=== PATIENT | male | born 1985 | race Caucasian/White ===

== ENCOUNTER 2020-03-28 01:23 | Observation (INO) | payer BC, OTHER ==
[~2020-03-28] VITALS: Ht 185.4 cm; Wt 124.8 kg
[2020-03-28] MEDS ORDERED: HYDROmorphone 1 MG/ML, 1ML INJ ONE ×3 (01:41→03:46)
[2020-03-28] MEDS ORDERED: ONDANSETRON 2MG/ML, 2ML ONE ×2 (01:41→06:36)
[2020-03-28] MEDS: HYDROmorphone 2 MG/ML, 1ML IVPush PRN ×2 (01:44→02:34)
[2020-03-28 01:51] LABS: BASOPHILS % (AUTO) 1 % (0-1); EOSINOPHILS % (AUTO) 1 % (1-7); LYMPHOCYTES % (AUTO) 13 % (22-44); MEAN CORPUSCULAR HEMOGLOBIN 27.7 pg (27.5-34.5); MEAN CORPUSCULAR HGB CONC 34.4 g/dL (33.2-36.2); MEAN PLATELET VOLUME 9.5 fL (7.4-10.4); MONOCYTES % (AUTO) 4 % (2-9); NEUTROPHILS % (AUTO) 81 % (42-75); PLATELET COUNT 291 x10^3/uL (130-400); RED BLOOD COUNT 5.54 x10^6/uL (4.38-5.82); RED CELL DISTRIBUTION WIDTH 13.5 % (9.4-14.8)
[2020-03-28 01:56] LABS: MD NO
[2020-03-28] MEDS ORDERED: ONDANSETRON 2MG/ML, 2ML IVPush ONE (02:00)
[2020-03-28] MEDS ORDERED: SODIUM CHLORIDE FLUSH 10ML SYR IVF ONE (02:00)
[2020-03-28 02:01] LABS: ALANINE AMINOTRANSFERASE 126 U/L (12-78); ALBUMIN 4.6 g/dL (3.4-5.0); ANION GAP 5 mmol/L (5-15); CALCIUM 10.2 mg/dL (8.5-10.1); CHLORIDE 105 mmol/L (98-107); CREATININE 1.53 mg/dL (0.7-1.3)
--- NOTE | 2020-03-28 02:02 | NUR ---
PT HAS RUQ PAIN X A FEW HOURS. PT IN VISIBLE DISTRESS D/T PAIN. PIV PLACED AND PT MEDICATED FOR PAIN PER EMAR. US AT BEDSIDE AT THIS TIME.
[2020-03-28 02:04] LABS: ALKALINE PHOSPHATASE 83 U/L (45-117); BILIRUBIN,TOTAL 0.6 mg/dL (0.2-1.0); TOTAL PROTEIN 8.7 g/dL (6.4-8.2)
--- NOTE | 2020-03-28 02:21 | NUR ---
US STILL AT BEDSIDE
[2020-03-28] MEDS ORDERED: CEFOTETAN PMX 2GM/50ML 50 ML IVPB ONE (03:00)
[2020-03-28] MEDS ORDERED: SODIUM CHLORIDE 0.9% 1,000ML IVBOLUS ONE (03:00)
[2020-03-28] MEDS ORDERED: HYDROmorphone 2 MG/ML, 1ML IVPush PRN (03:00)
[2020-03-28] MEDS ORDERED: ONDANSETRON 2MG/ML, 2ML IVPush PRN ×2 (03:30→07:00)
[2020-03-28] MEDS ORDERED: SODIUM CHLORIDE FLUSH 10ML SYR IVF PRN (03:30)
[2020-03-28] MEDS ORDERED: HYDROmorphone 1 MG/ML, 1ML INJ IVPush PRN ×2 (03:30→07:00)
[2020-03-28] MEDS ORDERED: SODIUM CHLORIDE 0.9% 1,000 ML IV ONE (03:30)
[2020-03-28] MEDS ORDERED: PROMETHAZINE 25 MG/ML, 1ML IM PRN (03:30)
--- NOTE | 2020-03-28 03:34 | NUR ---
PT INFORMED OF NPO STATUS. VERBALIZED UNDERSTANDING. PT GIVEN LEMON SWABS TO KEEP MOUTH MOIST.
[2020-03-28] MEDS ORDERED: BUPIVACAINE/PF 0.5% ONE (03:57)
[2020-03-28] MEDS ORDERED: EPINEPHRINE 1 MG/ML, 1ML ONE (03:57)
--- NOTE | 2020-03-28 04:05 | NUR ---
PER DR GOODMAN NO BLOOD CULTURE BEFORE ABX. PT WITH INCREASING PAIN. MEDICATED FOR PAIN PER EMAR
[2020-03-28] MEDS ORDERED: DIPHENHYDRAMINE 50 MG/ML, 1ML ONE (04:12)
--- NOTE | 2020-03-28 04:18 | NUR ---
PT REPORTS FEELING ICHY AND WARM AFTER DILAUDID. DR GOODMAN NOTIFIED AND PT MEDICATED WITH IV BENEDRYL. PT INFORMED TO PRESS CALL LIGHT AND NOTIFY ME IF NO IMPROVEMENT AND/OR DIFFICULTY BREATHING.
[2020-03-28] MEDS ORDERED: DIPHENHYDRAMINE 50 MG/ML, 1ML IVPush ONE (04:30)
--- NOTE | 2020-03-28 04:37 | NUR ---
PT DESATS WHEN HE FALLS ASLEEP. 2L O2 VIA NC APPLIED.
--- NOTE | 2020-03-28 04:50 | NUR ---
REPORT TO JESSIE TABOR
[2020-03-28] MEDS ORDERED: BUPIVACAINE/PF-EPI 0.5% 1:200K INFIL ONE (05:26)
[2020-03-28] MEDS ORDERED: MIDAZOLAM 1 MG/ML, 2ML ONE (06:31)
[2020-03-28] MEDS ORDERED: FENTANYL PF 250 MCG/5ML ONE (06:31)
[2020-03-28] MEDS ORDERED: SUGAMMADEX 200 MG/2 ML IVPush ONE (06:36)
[2020-03-28] MEDS ORDERED: DEXAMETHASONE 4 MG/ML, 1ML ONE (06:36)
[2020-03-28] MEDS ORDERED: EPHEDRINE 50 MG/ML, 1ML IVPush PRN (07:00)
[2020-03-28] MEDS ORDERED: FENTANYL PF 100 MCG/2ML IV PRN (07:00)
[2020-03-28] MEDS ORDERED: MIDAZOLAM 1 MG/ML, 2ML IV PRN (07:00)
[2020-03-28] MEDS ORDERED: LABETALOL 5MG/ML, 20ML IV PRN (07:00)
[2020-03-28] MEDS ORDERED: DIAZEPAM 5 MG/ML, 2ML IVPush PRN (07:00)
[2020-03-28] MEDS ORDERED: ACETAMINOPHEN 325 MG TABLET PO PRN ×2 (07:00→10:00)
[2020-03-28] MEDS ORDERED: PROMETHAZINE 25 MG/ML, 1ML IVPush PRN (07:00)
[2020-03-28] MEDS ORDERED: ALBUTEROL SULFATE 2.5 MG/3 ML NPPB PRN (07:00)
[2020-03-28] MEDS ORDERED: hydrALAzine 20 MG/ML, 1ML IV PRN (07:00)
[2020-03-28] MEDS ORDERED: DIPHENHYDRAMINE 50 MG/ML, 1ML IVPush PRN (07:00)
[2020-03-28] MEDS ORDERED: OXYcodone 5 MG/5 ML ORAL.SOL UDC PO PRN (07:00)
[2020-03-28] MEDS ORDERED: PROMETHAZINE 12.5 MG SUPP PR PRN (07:00)
[2020-03-28] MEDS ORDERED: MEPERIDINE/PF 25MG/0.5ML IVPush PRN (07:00)
[2020-03-28] MEDS ORDERED: PROPOFOL 10 MG/ML, 20ML ONE (07:23)
[2020-03-28] MEDS ORDERED: ROCURONIUM 10MG/ML,5ML ONE (07:23)
[2020-03-28] MEDS ORDERED: OXYC-302 PO (07:59)
[2020-03-28] MEDS ORDERED: ACETAMINOPHEN 650 MG/20.3 ML UDC ONE (08:06)
[2020-03-28] MEDS ORDERED: FENTANYL PF 100 MCG/2ML ONE (08:06)
[2020-03-28] MEDS ORDERED: MEPERIDINE/PF 25MG/ML,1ML ONE (08:06)
[2020-03-28] MEDS ORDERED: OXYcodone 5 MG/5 ML ORAL.SOL UDC ONE (08:06)
[2020-03-28 12:24] VITALS: BP 131/85
== END 2020-03-28 15:30 | disposition home or self-care (01) ==
LOC: ED 03:32 → EDIP 03:46 → INTOOBSV 03:46 → 3N 05:21
PROVIDERS: ADMIT Colon & Rectal Surgery; ATTEND Colon & Rectal Surgery
DX: K81.0 Acute cholecystitis (principal); Z20.828 Contact with and (suspected) exposure to other viral communicable diseases; D72.829 Elevated white blood cell count, unspecified; F12.90 Cannabis use, unspecified, uncomplicated; E66.9 Obesity, unspecified; Z68.36 Body mass index [BMI] 36.0-36.9, adult; Z88.0 Allergy status to penicillin
CPT/HCPCS: 36415; 47562; 76700; 80053; 83690; 85025; 87635; 88304; 96365; 96375; 96376; 99284; G0378; J0171; J1100; J1170; J1200; J2175; J2250; J2405; J2704; J3010; J7030; S0020